=== PATIENT | male | born 1945 | race Caucasian/White ===

== ENCOUNTER 2020-11-14 09:27 | Day surgery (SDC) | payer MEDICARE, OTHER, SELFPAY ==
[2020-11-10 12:36] VITALS: BMI 26.6
[2020-11-14] VITALS (7 sets, daily range): BP systolic 121–147; BP diastolic 74–97; PULSE 60–69; RESP 16; TEMP 36.3–36.7; O2SAT 97–99; BMI 27.0
[2020-11-14] MEDS: Lactated Ringers 1,000 ML 100 ML IV (10:02)
--- NOTE | 2020-11-14 10:06 | PCM.HP.BLA ---
History and Physical Date of Admission: 11/14/20 Intake Vital Signs 11/10/20 12:36 Height 5 ft 9 in Weight: 180 lb BMI 26.6 BP 145/89 H Blood Pressure Location Rt brachial Position Sitting Respiration 16 Pulse 65 Pulse Source Monitor Temp 97.5 F L Temp Source Temporal Pulse Oximetry (%) 99 Oxygen Delivery Method room air Intake Visit Reasons: TEMPORAL ARTERY BIOPSY Chief Complaint: headaches X3 months Irrigation Flume Layer Required: No Is patient in pain?: No Allergies No Known Allergies Allergy (Verified 11/10/20 13:45) Medications aspirin [Aspir-81] 81 mg PO QODAY 11/10/20 [History Confirmed 11/10/20] atorvastatin 40 mg tablet 40 mg PO DAILY tab 11/10/20 [History Confirmed 11/10/20] famotidine 20 mg tablet 20 mg PO DAILY PRN 11/10/20 [History Confirmed 11/10/20] prednisone 20 mg tablet 20 mg PO TID tab 11/10/20 [History Confirmed 11/10/20] PFSH Medical History (Updated 11/10/20 @ 14:00 by Brooklynn Cordova) Alcohol use Cardiology follow-up encounter Family hx of colon cancer Former smoker Heartburn High cholesterol History of hiatal hernia History of steroid therapy History of stress test Hx of echocardiogram Leg cramps Loss of hearing Migraine headache Persistent headaches Shortness of breath on exertion Sleep apnea SOB (shortness of breath) Syncope Surgical History (Updated 11/10/20 @ 12:34 by Maria Luisa Ortega) History of colonoscopy Family History (Updated 11/10/20 @ 12:35 by Maria Luisa Ortega) Mother Colon cancer High blood cholesterol Brother Heart disease High blood cholesterol Brother High blood cholesterol Social History (Updated 11/10/20 @ 12:36 by Maria Luisa Ortega) Smoking Status: Former smoker second hand exposure: No alcohol intake: current alcohol intake frequency: a few times a week Alcohol type: beer substance use type: does not use caffeine: Yes what type of physical activity do you participate in: walking and bicycling frequency: 1-2 times per week HPI HPI HPI: GEOVANNA EVANS, is a 75 M who presents to the office today for headaches. The patient has been experiencing headaches over the past few weeks. Is not worse on one side or the other and he has had no visual changes. He was started on steroids and this has not improved anything much. ROS General General: No weight change, appetite, fatigue, colon cancer, breast cancer or weakness HEENT HEENT: No difficulty swallowing, eye injury, eye surgery, swollen glands or hoarseness Endo Endocrine: No thyroid disease, diabetes mellitus, thyroid cancer, Hair loss, heat intolerance or cold intolerance Skin Skin: No rash or changing moles Musc Musculoskeletal: No back problems, arthritis, rheumatoid arthritis, gout or joint pain Cardio Cardiovascular: No pacemaker, heart disease, atrial fibrillation, high blood pressure, heart attack, heart stent, palpitations, shortness of breat with exertion or chest pain Psych Psychiatric: No depression, anxiety or hearing voices Resp Respiratory: Yes shortness of breath, Yes sleep apnea, No cough, No COPD, No asthma, No emphysema and No wheezing Gastro Gastrointestinal: No abdominal pain, No nausea or vomiting, No diarrhea, No constipation, No blood in stool, No acid reflux, No hemorrhoids, No ulcers, No gallbladder problem and No black,tarry stools [place] Hematologic: No blood thinners, No blood disorders, No bleeding, No anemia and No blood clots Neuro Neurologic: No weakness Exam Const General: cooperative Orientation: alert and oriented x3 HENMT Head: normal to inspection Neck Neck: normal visual inspection and full ROM Chest Chest palpation & inspection: normal inspection of the chest Resp Effort & Inspection: normal respiratory effort Auscultation: clear to auscultation bilaterally Cardio Rate: regular rate Rhythm: regular rhythm GI Inspection: non-distended Palpation: soft and nontender Skin General: no rashes or lesions noted Neuro General: patient alert and patient oriented x3 Extrem General: full ROM Psych Appearance: grossly normal Mental Status: mental status grossly normal Assessment and Plan Assessment and Plan (1) Persistent headaches: Status: Acute Plan - Dr. Kristian Rao MD: The patient is having persistent headaches but these are bilateral and not unilateral. The patient is not having any visual changes. The patient was sent here by ophthalmology for temporal artery biopsy. I discussed left temporal artery biopsy with the patient in detail. I discussed the risks of bleeding and infection. The patient understands the risks and is willing to proceed. I have asked him to stop his aspirin and I will perform his biopsy next week. Kristian Rao MD Pager: [facility] [address] [place] [address], [address] [place] [id number] Office: I have re-examined the patient. There are no clinical changes since date of exam. Assessment & Plan Assessment/Plan (1) Persistent headaches:
[2020-11-14] MEDS: Lidocaine 1% (30 ml sdv) 30 ML Vial (11:24)
--- NOTE | 2020-11-14 11:33 | PCM.OPRPT ---
Problems Associated Problem List Diagnoses (1) Persistent headaches: Report of Operation Date of Procedure: 11/14/20 Pre-Operative Diagnosis: Persistent temporal headaches Post-Operative Diagnosis: Same Surgery/Procedure Performed:: Left temporal artery biopsy Specimen's removed: Left temporal artery Estimated Blood Loss (mL): 5 Description of Procedure: Patient was brought back to the operating room and MAC anesthesia was induced. The left temporal region was trimmed of hair and then prepped and draped in usual sterile fashion. The artery was visibly pulsating and ultrasound was used to confirm anatomy and flow. The area was marked and then injected with local anesthetic. An incision was made in the skin and deepened to the artery. Retractors were placed and the artery was isolated. The artery was dissected free and a tributaries were clipped. The proximal and distal artery were tied with 3-0 suture ligature and clipped and then divided. The artery was sent for pathology. The cavity was irrigated and suctioned dry and there was good hemostasis. The incision was closed with a running 4-0 Monocryl suture and Dermabond. Patient tolerated the procedure well was brought to PACU in stable condition. Admit VTE Documentation VTE Mechan Device Prophylaxis: SCD's
--- NOTE | 2020-11-14 11:35 | EX.PCM.DISCH ---
Discharge Instructions Diet Discharge Diet: No restrictions Activity Discharge Activity: Return to Normal Activity and May Shower (tomorrow) Lifting Restrictions: 10 lbs for 1 week Dressing / Incision Call your doctor if your incision/area has: Continuous Slow Oozing, Sudden Increased Bleeding, Increased Pain/ Swelling, Increased Redness, Foul Smelling Discharge and Swelling at the incision site Call your doctor if you observe: Fever of 101 or Higher Cleanse incision/area with: Soap & Water Additional Dressing/Incision Instructions:: Ice 20 min on, 20 min off for pain. Tylenol and Ibuprofen for pain. Follow Up Care Please Follow Up With: Kristian Rao MD When: Please call to schedule 2 week follow up appointment. [phone] Test Results: Test results from this visit will be discussed in further detail at your follow-up appointment, if applicable. Discharge Plan Admission Attending Provider: Kristian Rao Primary Care Provider: Minoo Olson Discharge Orders/Prescriptions Prescriptions: No Action prednisone 20 mg tablet 20 mg PO TID RF: 0 atorvastatin 40 mg tablet 40 mg PO DAILY RF: 0 famotidine 20 mg tablet 20 mg PO DAILY PRN (Reason: GERD) RF: 0 aspirin [Aspir-81] 81 mg Tablet,Delayed Release (Dr/Ec) 81 mg PO QODAY RF: 0 Referrals / Follow Up: Minoo Olson MD [Primary Care Provider] - Disposition Disposition (needs filled in before D/C Order can be placed): Home, self care
--- NOTE | 2020-11-14 13:00 | TEM_PTH ---
PATIENT: GEOVANNA EVANS LOC: [facility] U#:[id number] AGE/SX: 75/M ROOM: RE11/14/[address]: Dr. Kristian Rao MD : 1945 BED: DIS: 11/14/2020 SPEC #: [id number] RECD: 11/14/20 13:03 STATUS: NICCI GLENROY #: [id number] AMADEO: 11/14/20 13:[address]: Kristian Rao DEPT: SURGICAL PATHOLOGY RECD BY: Claribel Harding ENTERED: 11/14/20 13:12 SP TYPE: TEMPORAL OTHR DR: Dr. 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 See comment. AM:santa 11/15/2020 COMMENT Elastin stain with matched control supports the above diagnosis. MICROSCOPIC DESCRIPTION Slides are reviewed. GROSS DESCRIPTION Received in fixative is one container labeled with the patient's name and designated left temporal artery biopsy. The specimen consists of a tubular piece of eagle-pink soft tissue measuring 2.5 cm in length and 0.2 cm in diameter. The entire specimen is submitted in one cassette. It will be serially sectioned at the time of embedding. / SJ:santa 11/14/20 TC:3 CPT: 53165, 22785
== END 2020-11-14 13:10 | disposition home or self-care (01) ==
LOC: SDC 09:27 → AC 09:28
PROVIDERS: PCP Family Medicine; Referring Provider Surgery; Visit Provider Surgery
PROC: (CPT 37609; principal; 2020-11-14 12:45)
DX: I77.89 Other specified disorders of arteries and arterioles (principal); I25.10 Atherosclerotic heart disease of native coronary artery without angina pectoris; I51.7 Cardiomegaly; E78.00 Pure hypercholesterolemia, unspecified; Z20.822 Contact with and (suspected) exposure to COVID-19; Z79.82 Long term (current) use of aspirin; Z79.899 Other long term (current) drug therapy; Z87.891 Personal history of nicotine dependence
CPT/HCPCS: 37609; 87426; 88305; 88313; C9803; J7120